=== PATIENT | male | born 1980 | race Caucasian/White ===

== ENCOUNTER 2024-04-14 12:36 | Day surgery (SDC) | payer OTHER ==
[2024-04-14] MEDS ORDERED: Xylocaine-Mpf 2% 5 Ml Vial IJ ONE (12:37)
[2024-04-14] MEDS ORDERED: Depo-Medrol 40 MG/ML IM ONE (12:37)
[2024-04-14] MEDS ORDERED: Lactated Ringers 1,000 ML IV ONE (13:52)
[2024-04-14] MEDS ORDERED: DIPRIVAN 200 MG/20 ML IV ONE (14:27)
--- NOTE | 2024-04-14 14:58 | XRAY ---
Indication: Bilateral L4-S1 MBB. Intraoperative fluoroscopy provided for 10 seconds. Single digital spot image submitted for interpretation demonstrates posterior needle tips projecting over the expected left and right L4-S1 nerve roots. Correlate with intraoperative findings/report.
--- NOTE | 2024-04-14 16:52 | XRAY ---
10 seconds of fluoroscopy was used in surgery for a bilateral L4-S1 MBB.
== END 2024-04-14 14:58 | disposition home or self-care (01) ==
LOC: SDC-PAIN 12:36
PROVIDERS: ATTEND Psychiatry & Neurology Pain Medicine
DX: M47.816 Spondylosis without myelopathy or radiculopathy, lumbar region (principal)
CPT/HCPCS: 64493; 64494; 72020; 77002; J2704

== ENCOUNTER 2024-05-05 11:38 | Day surgery (SDC) | payer OTHER ==
[2024-05-05] MEDS ORDERED: Depo-Medrol 40 MG/ML IM ONE (11:39)
[2024-05-05] MEDS ORDERED: BUPIVACAINE 0.5% VIAL IJ ONE (11:39)
[2024-05-05] MEDS ORDERED: Lactated Ringers 1,000 ML IV ONE (12:52)
[2024-05-05] MEDS ORDERED: DIPRIVAN 200 MG/20 ML IV ONE (13:14)
--- NOTE | 2024-05-05 14:47 | XRAY ---
Indication: Bilateral L4-S1 MBB. Intraoperative fluoroscopy was provided for 12 seconds. Single digital spot image submitted for interpretation demonstrates posterior needle tips projecting over the expected left and right L4-S1 nerve roots. Correlate with intraoperative findings/report.
--- NOTE | 2024-05-05 15:13 | XRAY ---
12 seconds of fluoroscopy was used in surgery for a bilateral L4-S1 MBB.
== END 2024-05-05 13:40 | disposition home or self-care (01) ==
LOC: SDC-PAIN 11:38
PROVIDERS: ATTEND Psychiatry & Neurology Pain Medicine
DX: M47.816 Spondylosis without myelopathy or radiculopathy, lumbar region (principal)
CPT/HCPCS: 64493; 64494; 72020; 77002; J2704

== ENCOUNTER 2024-06-02 12:04 | Day surgery (SDC) | payer OTHER ==
[2024-06-02] MEDS ORDERED: Depo-Medrol 40 MG/ML IM ONE (12:05)
[2024-06-02] MEDS ORDERED: LIDOCAINE HCL 1% 50 MG/5 ML VL PF IJ ONE (12:05)
[2024-06-02] MEDS ORDERED: BUPIVACAINE 0.5% VIAL IJ ONE (12:05)
[2024-06-02] MEDS ORDERED: DIPRIVAN 200 MG/20 ML IV ONE ×2 (13:55→13:57)
[2024-06-02] MEDS ORDERED: Lactated Ringers 1,000 ML IV ONE (14:20)
--- NOTE | 2024-06-02 15:08 | XRAY ---
Indication: Right L4-S1 RFA Intraoperative fluoroscopy provided for 15 seconds. 3 digital spot image submitted for interpretation demonstrates posterior needle tips projecting over the expected right L4-S1 nerve roots. Correlate with intraoperative findings/report.
--- NOTE | 2024-06-02 15:23 | XRAY ---
15 seconds of fluoroscopy was used in surgery for a right L4-S1 RFA.
== END 2024-06-02 14:20 ==
LOC: SDC-PAIN 12:04
PROVIDERS: ATTEND Psychiatry & Neurology Pain Medicine
DX: M47.816 Spondylosis without myelopathy or radiculopathy, lumbar region (principal); M47.817 Spondylosis without myelopathy or radiculopathy, lumbosacral region
CPT/HCPCS: 64635; 64636; 72100; 77002; J2001; J2704

== ENCOUNTER 2024-06-03 12:00 | Day surgery (SDC) | payer OTHER ==
[2024-06-03] MEDS ORDERED: LIDOCAINE HCL 1% 50 MG/5 ML VL PF IJ ONE (12:01)
[2024-06-03] MEDS ORDERED: Depo-Medrol 40 MG/ML IM ONE (12:01)
[2024-06-03] MEDS ORDERED: BUPIVACAINE 0.5% VIAL IJ ONE (12:01)
[2024-06-03] MEDS ORDERED: DIPRIVAN 200 MG/20 ML IV ONE (14:33)
[2024-06-03] MEDS ORDERED: Lactated Ringers 1,000 ML IV ONE (15:13)
--- NOTE | 2024-06-03 16:54 | XRAY ---
Indication: Left L4-S1 RFA. Intraoperative fluoroscopy provided for 22 seconds. 4 digital spot image submitted for interpretation demonstrates posterior needle tips projecting over the expected left L4-S1 nerve roots. Correlate with intraoperative findings/report.
--- NOTE | 2024-06-03 17:30 | XRAY ---
22 seconds of fluoroscopy was used in surgery for a left L4-S1 RFA.
== END 2024-06-03 15:05 | disposition home or self-care (01) ==
LOC: SDC-PAIN 12:00
PROVIDERS: ATTEND Psychiatry & Neurology Pain Medicine
DX: M47.816 Spondylosis without myelopathy or radiculopathy, lumbar region (principal); M47.817 Spondylosis without myelopathy or radiculopathy, lumbosacral region
CPT/HCPCS: 64635; 64636; 72100; 77002; J2001; J2704